=== PATIENT | male | born 1990 | race African-American/Black ===

== ENCOUNTER 2024-03-20 12:19 | Emergency (ER) | payer SELFPAY ==
[~2024-03-20] VITALS: Ht 170.2 cm; Wt 73.0 kg
[2024-03-20 12:28] VITALS: O2SAT 88
[2024-03-20] MEDS: HYDROCODONE/ACETAMINOPHEN 5/325MG TABLET PO ONE (14:00)
[2024-03-20] MEDS: LIDOCAINE HCL/PF 1% 10 MG/ML 5ML VIAL INFIL ONE (15:33)
[2024-03-20] MEDS: BACITRACIN ZINC OINT UDPKT TOP ONE (15:33)
[2024-03-20 16:26] VITALS: BP 141/82; PULSE 76; RESP 16; TEMP 36.78072; O2SAT 98
== END 2024-03-20 16:40 | disposition home or self-care (01) ==
LOC: ER 12:45
DX: S09.90XA Unspecified injury of head, initial encounter (principal); Y08.89XA Assault by other specified means, initial encounter; Y93.89 Activity, other specified; Y92.89 Other specified places as the place of occurrence of the external cause; Y99.8 Other external cause status
CPT/HCPCS: 99284; 70450; 12011; J3490